=== PATIENT | female | born 1950 | race Caucasian/White ===

== ENCOUNTER 2016-04-18 22:27 | Emergency (ER) | payer OTHER ==
[2016-04-18] MEDS ORDERED: NS 1,000 ML IV ONE ×2 (22:52→23:00)
[2016-04-18] MEDS ORDERED: ONDANSETRON 4 MG/2 ML VIAL IVP ONE (22:52)
[2016-04-18] MEDS ORDERED: HYDROmorphONE/DILAUDID 1 MG/ML SYR IVP ONE (22:52)
--- NOTE | 2016-04-18 22:52 | EDPHY ---
H & P Stated Complaint: central abd pain nausea vomiting HPI/ROS: HPI CHIEF COMPLAINT: Abdominal pain, nausea, vomiting, diarrhea HISTORY OF PRESENT ILLNESS: This patient very pleasant 65-year-old female denies any significant medical history she is currently taking azithromycin for an upper respiratory tract infection she is on day 4 of this, she does have surgical history of 2 D and C's but otherwise no intra-abdominal surgeries, she presents emergency room with sudden onset of nausea, vomiting, diarrhea around 5 -6 p.m. this evening. Patient tells me that she vomited 15 times and had over 20 episodes of watery nonbloody diarrhea. She denies fever she does endorse abdominal cramping located periumbilical region, with associated nausea. She tells me that she ate at [employer] around 2 o'clock and had a chicken dish she is unsure if this caused her to have acute onset nausea vomiting and diarrhea. No other immediate sick contacts. She decided come to the emergency room if she has had persistent nausea vomiting and diarrhea multiple episodes with ongoing abdominal pain. She did last have a emesis episode in the waiting room of the ER that was described as yellow bilious. She denies blood in her vomit or stool. Denies black tarry stool. Past Medical History:No significant medical history Past Surgical History: no significant surgical history except for D and C Social History: lives locally here, denies use of daily drugs alcohol tobacco products Family History: Noncontributory ROS REVIEW OF SYSTEMS: A comprehensive 10 point review of systems is otherwise negative aside from elements mentioned in the history of present illness. Exam Constitutional appears well nontoxic, triage nursing summary reviewed, vital signs reviewed, awake/alert. Eyes normal conjunctivae and sclera, EOMI, PERRLA. HENT normal inspection, atraumatic, moist mucus membranes, no epistaxis, neck supple/ no meningismus, no raccoon eyes. Respiratory clear to auscultation bilaterally, normal breath sounds, no respiratory distress, no wheezing. Cardiovascular rate normal, regular rhythm, no murmur, no edema, distal pulses normal. Gastrointestinal mild tenderness palpation in the periumbilical region there is no guarding or peritoneal signs, no rebound, no guarding, normal bowel sounds, no distension, no pulsatile mass. Genitourinary no CVA tenderness. Musculoskeletal no midline vertebral tenderness, full range of motion, no calf swelling, no tenderness of extremities, no meningismus, good pulses, neurovascularly intact. Skin pink, warm, & dry, no rash, skin atraumatic. Neurologic awake, alert and oriented x 3, AAOx3, moves all 4 extremities equally, motor intact, sensory intact, CN II-XII intact, normal cerebellar, normal vision, normal speech. Psychiatric normal mood/affect. Heme/Lymph/Immune no lymphadenopathy. Differential diagnosis includes but is not limited to and in no particular order : Bowel obstruction, appendicitis, gallbladder disease, diverticulitis, colitis , enteritis, perforated viscus, gastritis, GERD, esophagitis, urinary tract infection, pyelonephritis, kidney stones Medical Decision Making: This patient had an IV established obtain blood work, patient be given IV fluid normal saline fluid bolus, Zofran for nausea and Dilaudid for pain. Will check abdominal blood work including LFTs, lipase, CBC and electrolytes urinalysis will also have a CT scan of her abdomen pelvis due to the periumbilical pain make sure this is not acute appendicitis however I think is more likely to be a viral GI illness versus food illness. Re-evaluation: CT scan of the abdomen pelvis with IV contrast. The results of the study are shows a normal appendix, enteritis seen on CT scan with small bowel fluid-filled , otherwise unremarkable. The study was read by Dr. Goldberg I viewed the images myself on the PACS system. 1235: re-evaluation at this time this patient p.o. challenge well and ice chips and Gatorade no nausea vomiting her abdomen remained soft nontender no guarding or peritoneal signs. She is requesting be discharged home. CT scan and blood work reviewed CT scan does show that she has gastroenteritis or large amount of her small intestines that are fluid filled. She does not have a fever here she is not vomiting she is comfortable going home. Prescription for Zofran. She understands return emergency room if she develops worsening abdominal pain, fever vomiting. Her pannus was visualized on the CT scan is normal. Source: Patient - Personal History Current Tetanus/Diphtheria Vaccine: Yes Current Tetanus Diphtheria and Acellular Pertussis (TDAP): Yes - Medical/Surgical History Hx Asthma: No Hx Chronic Respiratory Disease: No Hx Diabetes: No Hx Cardiac Disease: No Hx Renal Disease: No Hx Cirrhosis: No Hx Alcoholism: No Hx HIV/AIDS: No Hx Splenectomy or Spleen Trauma: No Other PMH: - Social History Smoking Status: Never smoked Constitutional: Initial Vital Signs Temperature (C) 36.3 C 04/18/16 22:37 Heart Rate 88 04/18/16 22:37 Respiratory Rate 18 04/18/16 22:37 Blood Pressure 93/62 L 04/18/16 22:37 O2 Sat (%) 95 04/18/16 22:37 O2 Delivery Mode Room Air Allergies/Adverse Reactions: amoxicillin Allergy (Verified 04/18/16 22:36) mold Allergy (Verified 04/18/16 22:36) tree and shrub pollen Allergy (Verified 04/18/16 22:36) Home Medications: Medication Instructions Recorded AZITHROMYCIN 04/18/16 Ondansetron HCl [Zofran] 4 mg PO Q4-6PRN PRN #10 tablet 04/19/16 Medical Decision Making - Data Points Laboratory Results: Laboratory Results 04/18/16 22:53 04/18/16 22:53 04/19/16 04/19/16 04/18/16 00:11 00:05 22:53 WBC 14.22 H 10^3/uL (3.80-9.50) RBC 4.82 10^6/uL (4.18-5.33) Hgb 16.6 H g/dL (12.6-16.3) Hct 45.5 % (38.0-47.0) MCV 94.4 fL (81.5-99.8) MCH 34.4 H pg (27.9-34.1) MCHC 36.5 g/dL (32.4-36.7) RDW 11.5 % (11.5-15.2) Plt Count 304 10^3/uL (150-400) MPV 10.7 fL (8.7-11.7) Neut % (Auto) 86.7 H % (39.3-74.2) Lymph % (Auto) 5.7 L % (15.0-45.0) Angelina % (Auto) 6.3 % (4.5-13.0) Eos % (Auto) 0.8 % (0.6-7.6) Baso % (Auto) 0.2 L % (0.3-1.7) Nucleat RBC Rel Count 0.0 % (0.0-0.2) Absolute Neuts (auto) 12.34 H 10^3/uL (1.70-6.50) Absolute Lymphs (auto) 0.81 L 10^3/uL (1.00-3.00) Absolute Monos (auto) 0.89 H 10^3/uL (0.30-0.80) Absolute Eos (auto) 0.11 10^3/uL (0.03-0.40) Absolute Basos (auto) 0.03 10^3/uL (0.02-0.10) Absolute Nucleated RBC 0.00 10^3/uL (0-0.01) Immature Gran % 0.3 % (0.0-1.1) Immature Gran # 0.04 10^3/uL (0.00-0.10) VBG Lactic Acid Pending 2.4 H mmol/L (0.7-2.1) Sodium 145 H mEq/L (134-144) Potassium 4.3 mEq/L (3.5-5.2) Chloride 104 mEq/L (97-110) Carbon Dioxide 24 mEq/l (22-31) Anion Gap 17 mEq/L (8-16) BUN 26 H mg/dL (7-23) Creatinine 1.0 mg/dL (0.6-1.0) Estimated GFR 56 Glucose 150 H mg/dL (70-100) Calcium 10.1 mg/dL (8.5-10.4) Total Bilirubin 1.4 mg/dL (0.1-1.4) Conjugated Bilirubin 0.3 mg/dL (0.0-0.5) Unconjugated Bilirubin 1.1 mg/dL (0.0-1.1) AST 36 IU/L (14-46) ALT 44 IU/L (9-52) Alkaline Phosphatase 79 IU/L (38-126) Total Protein 7.7 g/dL (6.3-8.2) Albumin 4.9 g/dL (3.5-5.0) Lipase 89.0 IU/L (23-300) Urine Color Pending Urine Appearance Pending Urine pH Pending Ur Specific [place] Pending Urine Protein Pending Urine Ketones Pending Urine Blood Pending Urine Nitrate Pending Urine Bilirubin Pending Urine Urobilinogen Pending Ur Leukocyte Esterase Pending Ur Culture Indicated? Pending Urine Glucose Pending Medications Given: Discontinued Medications Hydromorphone HCl (Dilaudid) 0.5 mg IVP EDNOW ONE Stop: 04/18/16 22:53 Last Admin: 04/18/16 23:06 Dose: 0.5 mg Sodium Chloride (Ns) 1,000 mls @ 0 mls/hr IV ONCE ONE PRN Reason: Wide Open Stop: 04/18/16 22:53 Last Admin: 04/18/16 22:58 Dose: 1,000 mls Sodium Chloride (Ns) 1,000 mls @ 0 mls/hr IV ONCE ONE PRN Reason: Wide Open Stop: 04/18/16 23:01 Last Admin: 04/18/16 23:24 Dose: 1,000 mls Sodium Chloride (Ns) 1,000 mls @ 0 mls/hr IV ONCE ONE PRN Reason: Wide Open Stop: 04/19/16 00:12 Last Admin: 04/19/16 00:12 Dose: 1,000 mls Ondansetron HCl (Zofran) 4 mg IVP EDNOW ONE Stop: 04/18/16 22:53 Last Admin: 04/18/16 23:06 Dose: 4 mg Departure - Departure Disposition: Home, Routine, Self-Care Clinical Impression: Gastroenteritis Condition: Good Instructions: Dehydration (ED), Gastroenteritis (ED), Acute Nausea and Vomiting (ED) Additional Instructions: 1. Please stay well-hydrated drink clear fluids or Gatorade. 2. Return emergency room if develops worsening abdominal pain, fever, vomiting 3. Take Zofran as prescribed for nausea or vomiting 4. If you develop high fever severe abdominal pain continue have severe vomiting return to the ER 5. Eat a very bland diet Referrals: ADAN TYSON [Primary Care Provider] - As per Instructions Prescriptions: Ondansetron HCl [Zofran] 4 mg PO Q4-6PRN PRN #10 tablet PRN Reason: Nausea/Vomiting, Use 1st
[2016-04-18 23:04] LABS: % IMMATURE GRANULYOCYTES 0.3 % (0.0-1.1); ABSOLUTE IMMATURE GRANULOCYTES 0.04 10^3/uL (0.00-0.10); ADD DIFF? NO; ADD MORPH? NO; ADD SCAN? NO; ATYPICAL LYMPHOCYTE FLAG 10 (0-99); FRAGMENT RBC FLAG 0 (0-99); HEMATOCRIT 45.5 % (38.0-47.0); HEMOGLOBIN 16.6 g/dL (12.6-16.3); LEFT SHIFT FLG 0 (0-99); LIPEMIA HEMOLYSIS FLAG 90 (0-99); MEAN CELL HEMOGLOBIN 34.4 pg (27.9-34.1); MEAN CELL HEMOGLOBIN CONCENTR. 36.5 g/dL (32.4-36.7); MEAN CELL VOLUME 94.4 fL (81.5-99.8); MEAN PLATELET VOLUME 10.7 fL (8.7-11.7); PLATELET CLUMPS FLAG 10 (0-99); PLATELET COUNT 304 10^3/uL (150-400); RED BLOOD CELL COUNT 4.82 10^6/uL (4.18-5.33); RED CELL DISTRIBUTION WIDTH 11.5 % (11.5-15.2)
[2016-04-18] MEDS ORDERED: IOPAMIDOL (ISOVUE-300) 50 ML VIAL IV ONE (23:13)
[2016-04-18 23:21] LABS: ALANINE AMINOTRANSFERASE 44 IU/L (9-52); ALBUMIN 4.9 g/dL (3.5-5.0); ALKALINE PHOSPHATASE 79 IU/L (38-126); ANION GAP 17 mEq/L (8-16); ASPARTATE AMINOTRANSFERASE 36 IU/L (14-46); BILIRUBIN,TOTAL 1.4 mg/dL (0.1-1.4); BILIRUBIN-CONJUGATED 0.3 mg/dL (0.0-0.5); BILIRUBIN-UNCONJUGATED 1.1 mg/dL (0.0-1.1); CALCIUM 10.1 mg/dL (8.5-10.4); CARBON DIOXIDE 24 mEq/l (22-31); CHLORIDE 104 mEq/L (97-110); GLOMERULAR FILTRATION RATE 56; GLUCOSE 150 mg/dL (70-100); POTASSIUM 4.3 mEq/L (3.5-5.2); SODIUM 145 mEq/L (134-144); TOTAL PROTEIN 7.7 g/dL (6.3-8.2)
[2016-04-18 23:50] VITALS: RESP 12
--- NOTE | 2016-04-19 00:02 | CT ---
CT Scan of the Abdomen and Pelvis (With Contrast) April 18, 2016 Indication: Nausea, vomiting, and diarrhea. Evaluate for appendicitis. Technique: Dilute contrast was given orally prior to scanning. 90 mL of Isovue 300 were given intra venously by machine power injection. Multidetector helical CT imaging was performed from the diaphra gm to the symphysis pubis. Dose reduction techniques were utilized. Findings: The appendix is well-visualized and normal. The large and small bowel has a dysmotile patte rn with increased intraluminal fluid throughout the ileum and colon down to level the rectum. No adriana l wall thickening or abnormal enhancement. No diverticulitis. No pneumoperitoneum, free fluid, abscess, lymphadenopathy, or mass. The liver, spleen, pancreas, gallbladder, adrenal glands, and kidneys are normal. No hydronephrosis o r ureteral calculi. The urinary bladder is nearly completely empty. The uterus is normal. No adnexal mass. Enlarged left-sided gonadal veins draining to the left renal vein. The lung bases are clear. Heart size is normal. The abdominal aorta is normal caliber. No bone lesion s. Impression: 1. Normal appendix. 2. Dysmotile bowel pattern suggest viral gastroenteritis. 3. Pelvic varices. Results were discussed with Dr. Gerber Ambrose 11:58 p.m. April 18, 2016.
[2016-04-19] MEDS ORDERED: NS 1,000 ML IV ONE (00:11)
[2016-04-19 00:30] LABS: COLOR YELLOW; LEUKOCYTE ESTERASE,URINE TRACE (NEGATIVE); NITRITE,URINE NEGATIVE (NEGATIVE)
[2016-04-19 00:40] LABS: MUCUS TRACE /lpf (NONE-1+)
[2016-04-19 00:41] LABS: RBC,URINE NONE SEEN /hpf (0-3)
[2016-04-19] MEDS ORDERED: ONDANSETRON 4MG PREPACK#2 BTL TAKEHOME ONE (00:52)
[2016-04-19 00:54] VITALS: BP 108/66; PULSE 77; TEMP 98.4; O2SAT 94
== END 2016-04-19 01:05 | disposition home or self-care (01) ==
DX: K52.9 Noninfective gastroenteritis and colitis, unspecified (principal)
CPT/HCPCS: 74177; 96361; 96374; 96375; 99285; J1170; J2405; Q9967

== ENCOUNTER → 2016-07-23 | Outpatient (CLI) | payer OTHER | LOC: FIMAGING 13:23 | DX: Z12.31 Encounter for screening mammogram for malignant neoplasm of breast (principal) | CPT/HCPCS: G0202 ==

== ENCOUNTER 2018-08-09 13:46 | Emergency (ER) | payer OTHER ==
[2018-08-09] MEDS ORDERED: NS 1,000 ML IV ONE (14:35)
[2018-08-09 14:42] LABS: PLATELET COUNT 220 10^3/uL (150-400)
--- NOTE | 2018-08-09 14:42 | EDPHY ---
General - Diagnostics EKG: I reviewed patient's EKG. See [employer] system for interpretation <Chaz Colorado - Last Filed: 08/09/18 14:52> - History Smoking Status: Never smoked <Anderson Barron [place] - Last Filed: 08/09/18 16:32> Time Seen by Provider: 08/09/18 14:08 Narrative: CLINICAL IMPRESSION: Syncope, episodic lightheadedness ASSESSMENT/PLAN: 67-year-old otherwise healthy female with no past medical history presents to the emergency department after a syncopal episode at work today. Patient reports she did hit her head but has no obvious scalp hematoma or laceration. She is alert, oriented and without focal neurological deficits on arrival. NIH score of 0, no limb ataxia, vital signs stable. She has no complaints of chest pain or shortness of breath. EKG interpreted by Dr. Colorado, normal sinus rhythm , no acute ST or T-wave changes. Troponin 0. Chest x-ray without acute cardiopulmonary abnormality. CT scan read by Radiology with age-related changes , no acute intracranial hemorrhage or skull fracture. Labs otherwise reassuring with no leukocytosis, renal insufficiency, anemia, electrolyte imbalance. Patient is feeling much better since arrival and has no physical complaints on reassessment. I thoroughly explained her emergency department workup and diagnostic study results with her and her at bedside. I did discuss an offer admission however they have declined and would prefer to follow up as an outpatient with primary care. I recommended initiating a baby aspirin daily. Close monitoring of symptoms at home, consider cardiology consultation. Warning signs return to ED sooner discussed in person and in discharge papers with patient and her . Case discussed with Dr. Colorado. DIFFERENTIAL DX: Differential diagnosis includes but not limited to myocardial ischemia, pulmonary embolus, chest wall pain, vasovagal syncope, TIA, CVA,aortic aneurysm ED PROCEDURES: See lab and/or imaging results below ED COURSE: 2:35 p.m.: Case discussed with Dr. Colorado. EKG reviewed Dr. Colorado. Plan for IV, labs, EKG, CT scan, chest x-ray. 3:15 p.m.: CT scan discussed with Dr. Burton. No acute findings identified. No skull fracture. No bleeding. 3:30 p.m.: Majority of labs back. No evidence of electrolyte imbalance, renal insufficiency, anemia, leukocytosis. I discussed patient's entire emergency department workup with her and her who is at bedside. We did discuss an offer admission but she has declined. I did recommend she start taking a baby aspirin. I did recommend PCP follow-up in the next 24-48 hours. We also discussed cardiology evaluation. Patient is in agreement. Warning signs return to ED discussed CHIEF COMPLAINT: Fainted at work HPI: 67-year-old otherwise healthy female presents to the emergency department after she apparently fainted at work today. 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 She was sitting down for lunch with a co- worker when she describes a sensation in her chest as though she swallowed her lunch too fast. Her co-worker states that she stopped talking mid sentence, rolled her eyes and head back and then slumped out of her seat onto the ground. Co-worker reports she was out for approximately 5 sec. She then came to, was able to stand after short time, and was driven back to [place] by co-worker. She tried to get into her primary care was referred to the ED. She reports here that she feels "weird, dizzy and a little tingly in the lower lip". She reports no headache, chest pain, shortness of breath. She has not been ill recently. She exercises daily without exercise intolerance. Her father of an UT at 36 secondary to rheumatic fever. No history of blood clots. No recent air or car travel. No asymmetric lower extremity swelling. No associated vertigo, acute vision change, word-finding difficulties, slurred speech, severe headache. She states her neck feels like she "needs an adjustment". She reports no prescription drug use, does not smoke, drinks socially, is otherwise healthy. PAST MEDICAL HISTORY: None reported See nurse/triage notes for additional history if applicable Pertinent Past Surgical History: None reported Family History: Father of an UT at 36 secondary rheumatic fever Social History: Nonsmoker, works as a school psychologist, drinks socially REVIEW OF SYSTEMS: All other systems negative Constitutional: No fever, no chills, appetite change. Eyes: No discharge, vision change ENT: No sore throat, congestion, ear pain. Cardiovascular: No chest pain, no palpitations. Respiratory: No cough, no shortness of breath. Gastrointestinal: No abdominal pain, no vomiting, diarrhea. Genitourinary: No hematuria, dysuria, flank pain, pelvic pain Musculoskeletal: No back pain, joint swelling, joint pain, myalgias. Skin: No rashes, color change. Neurological: No headache, positive for dizziness, weakness. PHYSICAL EXAM: General Appearance: Alert, oriented, appropriate, cooperative, NAD, well hydrated, non-toxic appearing, hypertensive,, no hypoxia. HEENT: TMs are clear bilaterally no perforation or FB, no injection, no evidence of serous or mucopurulent otitis. No hemotympanum or Aly sign. No palpable scalp hematoma or contusion. Oropharynx clear is no erythema or exudates, no tonsillar hypertrophy or asymmetry. Dentition without abnormality. Eyes: PERRLA, no acute vision change, nystagmus, swelling, discharge, pain or photosensitivity. Conjunctiva pink, no pallor or injection Neck: Supple, nontender, no lymphadenopathy, no midline pain, FROM, no meningismus. Respiratory: There are no retractions, lungs are clear to auscultation. No chest wall or rib pain to palpation Cardiac: Regular rate and rhythm, no murmurs or gallops. Gastrointestinal: Abdomen is soft, nontender, bowel sounds normal, no masses/ hernia, no rigidity, guarding or focal peritoneal findings. Neurological: Alert and oriented x 3, CN 2-12 grossly intact, no limb ataxia, NIH score of 0, DTR's intact, normal sensation and strength Skin: Warm, dry, no rashes, no nodules on palpation. Musculoskeletal: Extremities are symmetrical, full range of motion, no tenderness, deformity, swelling, or erythema. No calf asymmetry erythema warmth Psychiatric: [Patient is oriented X 3 MEDICAL DECISION MAKING: Patient was seen independently. Secondary supervising physician at time of evaluation was Dr. Colorado. Diagnosis: Syncope . New, requires workup Summary: See Assessment and Plan for summary of ED visit Clinical lab tests: ordered / reviewed. Independent visualization of images, tracing, or specimens: Yes. Decision to obtain medical records or history from someone other than the patient: No Review / Summarize previous medical records: None available Discussed patient with another provider: Radiology, Dr. Colorado Patient Progress: Stable for discharge. (Anderson Barron) - Diagnostics EKG Interpretation: EKG: Complete interpretation has been separately recorded in the [employer] archive. Summary impression: Sinus rhythm, rate 59, no ST segment elevation or depression noted (Chaz Colorado) Imaging Results: Imaging Impressions Chest X-Ray 08/09/18 14:35 Impression: No acute pulmonary disease. Head CT 08/09/18 14:35 Impression: 1. No acute intracranial findings. If symptoms persist and clinical suspicion warrants, consider MRI. 2. Diffuse cerebral atrophy with periventricular and subcortical low attenuation consistent with chronic microvascular ischemic gliosis. Findings discussed with Anderson Barron 08/09/2018 at 15:12. - Objective Vital Signs: Initial Vital Signs Temperature (C) 36.8 C 08/09/18 13:53 Heart Rate 58 L 08/09/18 13:53 Respiratory Rate 16 08/09/18 13:53 Blood Pressure 149/74 H 08/09/18 13:53 O2 Sat (%) 98 08/09/18 13:53 O2 Delivery Mode Room Air Allergies/Adverse Reactions: amoxicillin Allergy (Verified 08/09/18 13:52) mold Allergy (Verified 08/09/18 13:52) tree and shrub pollen Allergy (Verified 08/09/18 13:52) Laboratory Results: Laboratory Results 08/09/18 14:15 08/09/18 14:15 08/09/18 08/09/18 08/09/18 15:47 15:02 14:15 WBC RBC Hgb Hct MCV MCH MCHC RDW Plt Count MPV Neut % (Auto) Lymph % (Auto) [place] % (Auto) Eos % (Auto) Baso % (Auto) Nucleat RBC Rel Count Absolute Neuts (auto) Absolute Lymphs (auto) Absolute Monos (auto) Absolute Eos (auto) Absolute Basos (auto) Absolute Nucleated RBC Immature Gran % Immature Gran # Sodium 137 mEq/L mEq/L (135-145) Potassium 4.3 mEq/L mEq/L (3.5-5.2) Chloride 103 mEq/L mEq/L (97-110) Carbon Dioxide 26 mEq/l mEq/l (22-31) Anion Gap 8 mEq/L mEq/L (6-14) BUN 22 mg/dL mg/dL (7-23) Creatinine 0.8 mg/dL mg/dL (0.6-1.0) Estimated GFR > 60 Glucose 100 mg/dL mg/dL (70-100) Calcium 9.7 mg/dL mg/dL (8.5-10.4) POC Troponin I 0.00 ng/mL ng/mL (0.00-0.08) Urine Color PALE YELLOW Urine Appearance CLEAR Urine pH 6.0 (5.0-7.5) Ur Specific [place] 1.005 (1.002-1.030) Urine Protein NEGATIVE (NEGATIVE) Urine Ketones NEGATIVE (NEGATIVE) Urine Blood NEGATIVE (NEGATIVE) Urine Nitrate NEGATIVE (NEGATIVE) Urine Bilirubin NEGATIVE (NEGATIVE) Urine Urobilinogen NEGATIVE EU EU (0.2-1.0) Ur Leukocyte Esterase NEGATIVE (NEGATIVE) Urine Glucose NEGATIVE (NEGATIVE) 08/09/18 14:15 WBC 7.50 10^3/uL 10^3/uL (3.80-9.50) RBC 4.35 10^6/uL 10^6/uL (4.18-5.33) Hgb 15.1 g/dL g/dL (12.6-16.3) Hct 43.3 % % (38.0-47.0) MCV 99.5 fL fL (81.5-99.8) MCH 34.7 pg H pg (27.9-34.1) MCHC 34.9 g/dL g/dL (32.4-36.7) RDW 12.1 % % (11.5-15.2) Plt Count 220 10^3/uL 10^3/uL (150-400) MPV 10.7 fL fL (8.7-11.7) Neut % (Auto) 62.8 % % (39.3-74.2) Lymph % (Auto) 25.5 % % (15.0-45.0) [place] % (Auto) 8.8 % % (4.5-13.0) Eos % (Auto) 2.1 % % (0.6-7.6) Baso % (Auto) 0.5 % % (0.3-1.7) Nucleat RBC Rel Count 0.0 % % (0.0-0.2) Absolute Neuts (auto) 4.71 10^3/uL 10^3/uL (1.70-6.50) Absolute Lymphs (auto) 1.91 10^3/uL 10^3/uL (1.00-3.00) Absolute Monos (auto) 0.66 10^3/uL 10^3/uL (0.30-0.80) Absolute Eos (auto) 0.16 10^3/uL 10^3/uL (0.03-0.40) Absolute Basos (auto) 0.04 10^3/uL 10^3/uL (0.02-0.10) Absolute Nucleated RBC 0.00 10^3/uL 10^3/uL (0-0.01) Immature Gran % 0.3 % % (0.0-1.1) Immature Gran # 0.02 10^3/uL 10^3/uL (0.00-0.10) Sodium Potassium Chloride Carbon Dioxide Anion Gap BUN Creatinine Estimated GFR Glucose Calcium POC Troponin I Urine Color Urine Appearance Urine pH Ur Specific [place] Urine Protein Urine Ketones Urine Blood Urine Nitrate Urine Bilirubin Urine Urobilinogen Ur Leukocyte Esterase Urine Glucose Medications Given: Sodium Chloride (Ns) 1,000 mls @ 500 mls/hr IV EDNOW ONE PRN Reason: Protocol Stop: 08/09/18 16:34 Last Admin: 08/09/18 15:48 Dose: 1,000 mls Point of Care Test Results: Chemistry 08/09/18 15:47 POC Troponin I 0.00 ng/mL ng/mL (0.00-0.08) Departure <Chaz Colorado - Last Filed: 08/09/18 14:52> <Anderson Barron - Last Filed: 08/09/18 16:32> - Departure Disposition: Home, Routine, Self-Care Clinical Impression: Syncope Qualifiers: Syncope type: unspecified Qualified Code(s): R55 - Syncope and collapse Condition: Good Instructions: Syncope (ED) Additional Instructions: DISCHARGE INSTRUCTIONS FROM YOUR DOCTOR Thank you for visiting our emergency department today. You were treated by a physician account management assistant today and your case was reviewed with our ED Attending physician. Please keep in mind that discharge from the emergency department does not mean that there is nothing wrong - it simply means that we have not identified an emergency condition that requires further evaluation or treatment in the hospital. You should always plan to follow up with primary care for re- evaluation of your condition in the next 2-3 days. If you have been referred to a specialist, please call as soon as possible (today or tomorrow) to schedule your follow up appointment at the appropriate time. DIAGNOSTIC WORKUP IN THE EMERGENCY DEPARTMENT INCLUDED URINE STUDIES, EKG, CHEST X-RAY, CARDIAC ENZYMES, CT HEAD, AND LAB WORK. YOU HAVE NO ABNORMAL FINDINGS IDENTIFIED. ALL IMAGING STUDIES ARE REASSURING. NEGATIVE CARDIAC ENZYMES. NO ABNORMAL EKG FINDINGS. LAB WORK REASSURING. NO EVIDENCE OF URINARY TRACT INFECTION. WE STRONGLY RECOMMEND THAT YOU FOLLOW UP WITH A PRIMARY CARE DOCTOR IN THE NEXT 24-48 HOURS. WE STRONGLY RECOMMEND STARTING A BABY ASPIRIN DAILY. PLEASE RETURN TO THE EMERGENCY DEPARTMENT IMMEDIATELY FOR HEADACHE, ALTERED MENTAL STATUS, SEIZURE ACTIVITY, RECURRENT SYNCOPE, FACIAL DROOP, WORD-FINDING DIFFICULTIES, SLURRED SPEECH, CHEST PAIN OR SHORTNESS OF BREATH, OR ANY OTHER CONCERNS. People present with illnesses and injuries in different ways, and it is always possible that we have missed something. You may always return for re-evaluation if symptoms worsen or if they are not improving or if you develop new/different symptoms. Again, thank you for choosing our emergency department. We hope that you feel better. Referrals: ADAN TYSON [Primary Care Provider] - 1-2 days without fail Ronald Hill MD [Medical Doctor] - 1-2 days without fail
--- NOTE | 2018-08-09 14:53 | CPEKG ---
Test Reason : OPEN Blood Pressure : / mmHG Vent. Rate : 059 BPM Atrial Rate : 059 BPM P-R Int : 169 ms QRS Dur : 090 ms QT Int : 457 ms P-R-T Axes : 061 081 048 degrees QTc Int : 453 ms Sinus rhythm Borderline right axis deviation Confirmed by Chaz Colorado ([id number]) on 08/09/2018 2:52:50 PM Referred By: Chaz Colorado Confirmed By:Chaz Colorado
[2018-08-09 16:49] VITALS: BP 139/74
== END 2018-08-09 16:56 | disposition home or self-care (01) ==
DX: R55 Syncope and collapse (principal); E86.9 Volume depletion, unspecified
CPT/HCPCS: 84484-ER